=== PATIENT | female | born 1965 | race Two or more races ===

== ENCOUNTER 2017-05-19 16:53 | Emergency (ER) | payer OTHER ==
[2017-05-19 17:10] VITALS: BP 135/87; PULSE 77; TEMP 98.4; BMI 24.2
--- NOTE | 2017-05-19 17:10 | PDOC ---
Rapid Medical Evaluation Chief Complaint: Eye Problem Time Seen by Provider: 05/19/17 17:07 Medical Evaluation: Allergies Allergy/AdvReac Type Severity Reaction Status Date / Time Penicillins AdvReac Verified 05/19/17 17:06 sulfamethoxazole AdvReac Verified 05/19/17 17:06 [From Bactrim] trimethoprim [From Bactrim] AdvReac Verified 05/19/17 17:06 05/19/17 17:07 I have performed a brief in-person evaluation of this patient. The patient presents with a chief complaint of: FB sensation w/ photophobia and tearing to R eye. States something fell into her eye at home while looking up in a closet 1/2 an hr ago. H/o renal transplant, HTN Pertinent physical exam findings:mild injection to R conjunctiva I have ordered the following:nothing The patient will proceed to the ED for further evaluation.
[2017-05-19] MEDS ORDERED: FLUORESCEIN NA 1 EA STRIP ONE (18:04)
[2017-05-19] MEDS ORDERED: TETRACAINE 0.5% OPHTH SOLN 2 ML BOTTLE ONE (18:04)
--- NOTE | 2017-05-19 18:08 | PDOC ---
History of Present Illness - General History Source: Patient Exam Limitations: No Limitations - History of Present Illness Initial Comments: 05/19/17 18:14 The patient is a 51 year old female with a significant PMH of kidney failure (s/ p transplant) who presents to the emergency department with bilateral eye redness s/p foreign particles in the eye at about 4PM today. The patient reports putting away decorations on the top shelf of a closet when some dust particles slid down into her eyes She reports washing out her eyes shortly after but denies rubbing them after washing them out. The patient reports having an episode of bilateral eye inflammation last week which she received Ciprofloxacin for. She reports using the Ciprofloxacin to some relief before this episode. Allergies: Penicillins, Sulfamethoxazole, Trimethoprim Social history: No reported cigarette, alcohol, or drug use. PCP: Dr. Sumner Review of Systems GENERAL/CONSTITUTIONAL: No fever or chills. No weakness. HEAD, EYES, EARS, NOSE AND THROAT: (+) Dust particles in eyes. (+) Bilateral eye redness. No ear pain or discharge. No sore throat. CARDIOVASCULAR: No chest pain or shortness of breath. RESPIRATORY: No cough, wheezing, or hemoptysis. GASTROINTESTINAL: No nausea, vomiting, diarrhea or constipation. GENITOURINARY: No dysuria, frequency, or change in urination. MUSCULOSKELETAL: No joint or muscle swelling or pain. No neck or back pain. SKIN: No rash NEUROLOGIC: No headache, vertigo, loss of consciousness, or change in strength/ sensation. ENDOCRINE: No increased thirst. No abnormal weight change. HEMATOLOGIC/LYMPHATIC: No anemia, easy bleeding, or history of blood clots. ALLERGIC/IMMUNOLOGIC: No hives or skin allergy. Physical Exam: GENERAL: Awake, alert, and fully oriented, in no acute distress HEAD: No signs of trauma EYES: (+) Bilateral eye erythema. PERRLA, EOMI, sclera anicteric, conjunctiva clear ENT: Auricles normal inspection, hearing grossly normal, nares patent, oropharynx clear without exudates. Moist mucosa NECK: Normal ROM, supple, no lymphadenopathy, JVD, or masses LUNGS: Breath sounds equal, clear to auscultation bilaterally. No wheezes, and no crackles HEART: Regular rate and rhythm, normal S1 and S2, no murmurs, rubs or gallops ABDOMEN: Soft, nontender, normoactive bowel sounds. No guarding, no rebound. No masses EXTREMITIES: Normal range of motion, no edema. No clubbing or cyanosis. No cords, erythema, or tenderness NEUROLOGICAL: Cranial nerves II through XII grossly intact. Normal speech, normal gait SKIN: Warm, Dry, normal turgor, no rashes or lesions noted. <Rui Chand - Last Filed: 05/19/17 18:14> <Louann Cao - Last Filed: 05/19/17 18:37> - General Chief Complaint: Eye Problem Stated Complaint: EYE PROBLEM Time Seen by Provider: 05/19/17 17:07 Past History <Rui Chand - Last Filed: 05/19/17 18:14> - Past Medical History Anemia: No Asthma: No Cancer: No Cardiac Disorders: Yes (HEART MURMUR) CVA: No COPD: No CHF: No Dementia: No Diabetes: No Dialysis: No (hx of) GI Disorders: No Disorders: No HTN: Yes Hypercholesterolemia: No Liver Disease: No Seizures: No Thyroid Disease: No - Surgical History Abdominal Surgery: Yes (lt ovary removed,) - Suicide/Smoking/Psychosocial Hx Smoking History: Never smoked Have you smoked in the past 12 months: No Information on smoking cessation initiated: No Hx Alcohol Use: No Drug/Substance Use Hx: No Substance Use Type: None <Louann Cao - Last Filed: 05/19/17 18:37> - Past Medical History Allergies/Adverse Reactions: Allergies Allergy/AdvReac Type Severity Reaction Status Date / Time Penicillins AdvReac Verified 05/19/17 17:06 sulfamethoxazole AdvReac Verified 05/19/17 17:06 [From Bactrim] trimethoprim [From Bactrim] AdvReac Verified 05/19/17 17:06 Home Medications: Ambulatory Orders Ciprofloxacin 0.3% Eye Drops [Ciloxan 0.3% Eye Drops --] 2 drop OU Q4HWA #1 bottle 05/19/17 *Physical Exam - Vital Signs Last Vital Signs Temp Pulse Resp BP Pulse Ox 98.4 F 77 18 135/87 100 05/19/17 17:07 05/19/17 17:07 05/19/17 17:07 05/19/17 17:07 05/19/17 17:07 <Rui Chand - Last Filed: 05/19/17 18:14> - Vital Signs Last Vital Signs Temp Pulse Resp BP Pulse Ox 98.4 F 77 18 135/87 100 05/19/17 17:07 05/19/17 17:07 05/19/17 17:07 05/19/17 17:07 05/19/17 17:07 <Louann Cao - Last Filed: 05/19/17 18:37> Medical Decision Making - Medical Decision Making 05/19/17 18:23 A portion of this note was documented by the scribe services under my direction. I reviewed the details of the note within reason, and agree with the documentation with the following case summary and management plan written by me. A/P: Patient with bilateral conjunctivitis will DC patient on Cipro based eyedrops, follow-up with ophthalmology. 05/19/17 18:37 <Louann Cao - Last Filed: 05/19/17 18:37> *DC/Admit/Observation/Transfer - Attestations Scribe Attestion: 05/19/17 18:14 Documentation prepared by Rui Chand, acting as medical esthetician for Louann Cao NP. <Rui Chand - Last Filed: 05/19/17 18:14> - Discharge Dispostion Admit: No <Louann Cao - Last Filed: 05/19/17 18:37> Diagnosis at time of Disposition: Conjunctivitis Qualifiers: Conjunctivitis type: acute Acute conjunctivitis type: unspecified Laterality: bilateral Qualified Code(s): H10.33 - Unspecified acute conjunctivitis, bilateral - Discharge Dispostion Disposition: HOME Condition at time of disposition: Good - Prescriptions Prescriptions: Ciprofloxacin 0.3% Eye Drops [Ciloxan 0.3% Eye Drops --] 2 drop OU Q4HWA #1 bottle - Referrals Referrals: Glenroy Sumner MD [Primary Care Provider] - - Patient Instructions Printed Discharge Instructions: Conjunctivitis Additional Instructions: * Refrain from touching or scratching eye * Please wash hands frequently * Please followup with his primary care doctor in 2 days if symptoms persist * Medication as prescribed * Warm compresses to eye * If increased redness, swelling, pain to the eye please follow up with primary care doctor immediately or return to emergency room - Post Discharge Activity Forms/Work/School Notes: Back to Work
== END 2017-05-19 18:38 | disposition home or self-care (01) ==
LOC: JERFT 16:53
DX: H10.33 Unspecified acute conjunctivitis, bilateral (principal); I10 Essential (primary) hypertension; Z94.0 Kidney transplant status
CPT/HCPCS: 99281-25

== ENCOUNTER 2018-11-03 13:35 | Emergency (ER) | payer OTHER | END 2018-11-03 18:56 | disposition home or self-care (01) | LOC: JER 13:35 ==

== ENCOUNTER 2019-03-26 05:13 | Emergency (ER) | payer OTHER ==
--- NOTE | 2019-03-26 05:44 | PDOC ---
Attending Attestation - Resident Resident Name: GlenroyYamilex - ED Attending Attestation I have performed the following: I have examined & evaluated the patient, The case was reviewed & discussed with the resident, I agree w/resident's findings & plan - HPI HPI: 03/26/19 06:56 Pt comes with vomiting - Physicial Exam PE: 03/26/19 06:57 Agree with resident exam - Medical Decision Making 03/26/19 06:58 WBC normal 03/26/19 06:58 Lipase normal 03/26/19 07:11 Food poisoning; signed out to the day team Heart Score/ECG Review - ECG Intrepretation Rhythm: Regular Rhythm - Clarissa Clarissa: Normal - P and MI Delta Wave(s) Present: No WPW: No - QRS Poor R Wave Progression: No Q Wave Present: No - ST and T Early Repolarization: No Non Specific ST-T Wave changes: No Flattened T Waves: No Prolonged Q-T Interval: No
[2019-03-26 06:04] VITALS: BP 143/86; PULSE 107; TEMP 98.1; BMI 25.0
--- NOTE | 2019-03-26 06:04 | PDOC ---
History of Present Illness - General Chief Complaint: Vomiting/Diarrhea Stated Complaint: VOMITING Time Seen by Provider: 03/26/19 05:44 History Source: Patient - History of Present Illness Initial Comments: 03/26/19 06:03 53 yo F PMH CKD s/p kidney transplant (2012), HTN, VSD presented to the ED with continuous vomiting/ diarrhea. Pt states the symptoms began approx 8pm yesterday. she states that since then she has had constant diarrhea, unable to control. She also has been vomiting. she states over the past hour she has vomited 5 times. she states that she ate food from a restaurant yesterday which is outside of her norm. Her other family members who also ate the same food are not experiencing symptoms. she denies hematemesis or hematochezia. she states that shortly prior to diarrhea/ nausea her stomach began to hurt and has been constant since then, she rates the pain 5/10 worse in LLQ, RLQ. She endorses dizziness, weakness. denies fevers 03/26/19 06:04 03/26/19 06:08 Past History - Travel Traveled outside of the country in the last 30 days: No If so, where?: 2 months ago [place] - Past Medical History Allergies/Adverse Reactions: Allergies Allergy/AdvReac Type Severity Reaction Status Date / Time Penicillins AdvReac Verified 03/26/19 05:40 sulfamethoxazole AdvReac Verified 03/26/19 05:40 [From Bactrim] trimethoprim [From Bactrim] AdvReac Verified 03/26/19 05:40 Home Medications: Ambulatory Orders Carvedilol [Coreg -] 12.5 mg PO BID 03/26/19 Cholecalciferol (Vitamin D3) [Vitamin D] 2,000 unit PO DAILY 03/26/19 Cinacalcet HCl [Sensipar -] 30 mg PO DAILY 03/26/19 Magnesium Oxide [Mag-Ox -] 400 mg PO DAILY 03/26/19 Mycophenolate Sodium [Mycophenolic Acid] 360 mg PO HS 03/26/19 Mycophenolate Sodium [Mycophenolic Acid] 720 mg PO AM 03/26/19 Tacrolimus [Prograf] 3 mg PO HS 03/26/19 Tacrolimus [Prograf] 4 mg PO AM 03/26/19 Anemia: No Asthma: No Cancer: No Cardiac Disorders: Yes (HEART MURMUR) CVA: No COPD: No CHF: No Dementia: No Diabetes: No Dialysis: No (hx of) GI Disorders: No Disorders: No HTN: Yes Hypercholesterolemia: No Liver Disease: No Seizures: No Thyroid Disease: No - Surgical History Abdominal Surgery: Yes (lt ovary removed, october2018, kidney transplant 6 yr ago) - Psycho Social/Smoking Cessation Hx Smoking History: Never smoked Have you smoked in the past 12 months: No Hx Alcohol Use: No Drug/Substance Use Hx: No Substance Use Type: None Review of Systems - Review of Systems Able to Perform ROS?: Yes Constitutional: Yes: Chills. No: Fever Respiratory: No: Shortness of Breath Cardiac (ROS): Yes: Chest Pain, Palpitations ABD/GI: Yes: Diarrhea, Indigestion, Abdominal cramping. No: Blood Streaked Bowels, Nausea, Rectal Bleeding, Vomiting, Tarry Stools Musculoskeletal: Yes: Muscle Weakness Neurological: Yes: Weakness, Dizziness *Physical Exam - Vital Signs Last Vital Signs Temp Pulse Resp BP Pulse Ox 98.1 F 107 H 17 143/86 99 03/26/19 05:25 03/26/19 05:25 03/26/19 05:25 03/26/19 05:25 03/26/19 05:25 - Physical Exam General Appearance: Yes: Nourished, Appropriately Dressed HEENT: positive: Normal Voice, Symmetrical, Pharynx Normal Respiratory/Chest: positive: Lungs Clear, Normal Breath Sounds. negative: Accessory Muscle Use, Crackles, Wheezing Cardiovascular: positive: Regular Rhythm, Regular Rate, S1, S2, Murmur Gastrointestinal/Abdominal: positive: Normal Bowel Sounds, Tender (LLQ, suprapubic ), Soft. negative: Distended, Guarding, Rebound Extremity: negative: Swelling Integumentary: positive: Normal Color, Dry, Warm ED Treatment Course - LABORATORY CBC & Chemistry Diagram: 03/26/19 06:15 03/26/19 06:15 - RADIOLOGY Radiology Studies Ordered: Category Date Time Status CHEST X-RAY PORTABLE* [RAD] Stat Radiology 03/26/19 05:51 Ordered Medical Decision Making - Medical Decision Making 03/26/19 06:12 53yo F presenting with nausea, vomiting, diarrhea -CBC. CMP, Mg Phos -EKG -lipase -zofran -CXR 03/26/19 06:19 -ekg reviewed, in sinus. 03/26/19 06:26 -cbc reviewed - 03/26/19 06:49 lipase 92, unlikely pancreatitis 03/26/19 07:00 trop neg Discharge - Discharge Information Problems reviewed: Yes Clinical Impression/Diagnosis: Nausea & vomiting Disposition: HOME - Follow up/Referral Referrals: Glenroy Sumner MD [Primary Care Provider] - - Patient Discharge Instructions Patient Printed Discharge Instructions: DI for Viral Gastroenteritis -- Adult Additional Instructions: You were seen with nausea, vomiting, and diarrhea. This is likely to have been a viral illness. Your labs were unconcerning, and your symptoms improved with medication. Please drink plenty of fluids. Follow up with your primary care doctor within one week. Return to the ED if you develop worsening symptoms. - Post Discharge Activity
[2019-03-26] MEDS ORDERED: ONDANSETRON 4 MG/2 ML VIAL IVPUSH ONE ×2 (06:17→08:47)
[2019-03-26] MEDS ORDERED: ONDANSETRON 4 MG/2 ML VIAL ONE ×2 (06:22→09:33)
[2019-03-26 06:24] LABS: BASO % 1.1 % (0-2.0); EOS % 0.6 % (0-4.5); HEMATOCRIT 46.2 % (32.4-45.2); HEMOGLOBIN 15.1 GM/dL (10.7-15.3); LYMPH % 5.8 % (8-40); MCH 28.3 pg (25.7-33.7); MCHC 32.6 g/dl (32.0-36.0); MEAN CELL VOLUME 86.8 fl (80-96); MEAN PLT VOLUME 10.3 fl (7.5-11.1); MONO % 8.3 % (3.8-10.2); NEUT % 84.2 % (42.8-82.8); PLATELET COUNT 157 K/MM3 (134-434); RBC 5.32 M/mm3 (3.60-5.2); RDW 14.4 % (11.6-15.6); WHITE BLOOD COUNT 4.3 K/mm3 (4.0-10.0)
[2019-03-26] MEDS ORDERED: SODIUM CHLORIDE 500 ML IV STA (06:40)
[2019-03-26 07:21] LABS: ALBUMIN 5.1 g/dl (3.4-5.0); BILIRUBIN,TOTAL 0.9 mg/dL (0.2-1); BLOOD UREA NITROGEN 22.5 mg/dL (7-18); CALCIUM 8.6 mg/dL (8.5-10.1); CREATININE 1.2 mg/dL (0.55-1.3); MAGNESIUM 1.8 mg/dL (1.8-2.4); PHOSPHOROUS 3.6 mg/dL (2.5-4.9); POTASSIUM 3.7 mmol/L (3.5-5.1); TOT PROT 8.3 g/dl (6.4-8.2)
[2019-03-26] MEDS ORDERED: LACTATED RINGERS SOLUTION 1000 ML INFUS.BAG IV ONE (07:30)
--- NOTE | 2019-03-26 07:33 | PDOC ---
*Physical Exam - Vital Signs Last Vital Signs Temp Pulse Resp BP Pulse Ox 98.1 F 107 H 17 143/86 99 03/26/19 05:25 03/26/19 05:25 03/26/19 05:25 03/26/19 05:25 03/26/19 05:25 ED Treatment Course - LABORATORY CBC & Chemistry Diagram: 03/26/19 06:15 03/26/19 06:15 - ADDITIONAL ORDERS Additional order review: Laboratory Results 03/26/19 03/26/19 03/26/19 06:15 06:15 06:14 Sodium 139 Potassium 3.7 Chloride 104 Carbon Dioxide 28 Anion Gap 7 L BUN 22.5 H Creatinine 1.2 Est GFR (CKD-EPI)AfAm 58.92 Est GFR (CKD-EPI)NonAf 50.84 Random Glucose 138 H Calcium 8.6 Phosphorus 3.6 Magnesium 1.8 Total Bilirubin 0.9 AST 27 ALT 28 Alkaline Phosphatase 90 Troponin I < 0.02 Total Protein 8.3 H Albumin 5.1 H Lipase 92 03/26/19 06:15 RBC 5.32 H MCV 86.8 MCHC 32.6 RDW 14.4 MPV 10.3 Neutrophils % 84.2 H D Lymphocytes % 5.8 L D Monocytes % 8.3 Eosinophils % 0.6 D Basophils % 1.1 - Medications Given in the ED: ED Medications Discontinued Medications Generic Name Dose Route Start Last Admin Trade Name Aryanq PRN Reason Stop Dose Admin Ondansetron HCl 4 mg 03/26/19 06:17 03/26/19 06:25 Zofran Injection IVPUSH 03/26/19 06:18 4 mg ONCE ONE Administration Medical Decision Making - Medical Decision Making 03/26/19 07:[address] Tim, will f/u CMP, UA, dispo per symptoms (N/V/D). 03/26/19 07:28 Electrolytes wnl, will give another 500cc. Patient feeling slightly less nauseous, no longer having diarrhea. 03/26/19 08:17 Patient continuing to feel better. Will rehydrate orally, monitor for increasing nausea. Discharge - Discharge Information Problems reviewed: Yes Clinical Impression/Diagnosis: Nausea & vomiting Disposition: HOME - Follow up/Referral Referrals: Glenroy Sumner MD [Primary Care Provider] - - Patient Discharge Instructions Patient Printed Discharge Instructions: DI for Viral Gastroenteritis -- Adult Additional Instructions: You were seen with nausea, vomiting, and diarrhea. This is likely to have been a viral illness. Your labs were unconcerning, and your symptoms improved with medication. Please drink plenty of fluids. Follow up with your primary care doctor within one week. Return to the ED if you develop worsening symptoms. - Post Discharge Activity
[2019-03-26] MEDS ORDERED: FAMOTIDINE 20 MG/50 ML IVPB 20 MG/50 ML MG IVPB ONE (08:53)
[2019-03-26] MEDS ORDERED: ACETAMINOPHEN 1000 MG/100 ML VIAL (NON FORMULARY) IVPB ONE (08:53)
[2019-03-26] MEDS ORDERED: SODIUM CHLORIDE 0.9% 500 ML INFUS.BAG IV ONE (09:32)
[2019-03-26] MEDS ORDERED: ACETAMINOPHEN INJECTION 0 ML IVPB ONE (09:33)
[2019-03-26] MEDS ORDERED: FAMOTIDINE 20 MG/50 ML IVPB 0 MG/0 ML MG IVPB ONE (09:35)
--- NOTE | 2019-03-26 11:28 | EKG ---
Test Reason : Blood Pressure : / mmHG Vent. Rate : 097 BPM Atrial Rate : 097 BPM P-R Int : 128 ms QRS Dur : 090 ms QT Int : 334 ms P-R-T Axes : 066 047 053 degrees QTc Int : 424 ms NORMAL SINUS RHYTHM POSSIBLE LEFT ATRIAL ENLARGEMENT LEFT VENTRICULAR HYPERTROPHY ABNORMAL ECG NO PREVIOUS ECGS AVAILABLE Confirmed by KSENIA NAGY MD ([id number]) on 03/26/2019 11:28:23 AM Referred By: Confirmed By:KSENIA NAGY MD
[2019-03-26 12:58] LABS: ANISOCYTOSIS 1+; MACROCYTOSIS 0; OVALOCYTE 1+; PLATELET ESTIMATE NORMAL; TEAR DROP CELLS 1+
== END 2019-03-26 10:02 | disposition home or self-care (01) ==
LOC: JER 05:13
PROC: 3E0337Z Introduction of Electrolytic and Water Balance Substance into Peripheral Vein, Percutaneous Approach (ICD-10-PCS; principal; 2019-03-26)
PROC: 3E033GC Introduction of Other Therapeutic Substance into Peripheral Vein, Percutaneous Approach (ICD-10-PCS; 2019-03-26)
DX: A08.4 Viral intestinal infection, unspecified (principal); B97.89 Other viral agents as the cause of diseases classified elsewhere; I10 Essential (primary) hypertension; Q21.0 Ventricular septal defect; Z94.0 Kidney transplant status; Z88.2 Allergy status to sulfonamides; Z88.0 Allergy status to penicillin
CPT/HCPCS: 36415; 71045-TC-FY; 80053; 83690; 83735; 84100; 84484; 85025; 93005; 93010; 96361; 96374; 99282-25

== ENCOUNTER 2023-03-15 10:47 | Emergency (ER) | payer OTHER ==
[2023-03-15 10:52] VITALS: BMI 20.9
[2023-03-15] MEDS ORDERED: SODIUM CHLORIDE 1,000 ML IV STA (12:03)
[2023-03-15 13:14] LABS: BASO % 0.2 % (0-2.0); EOS % 0.5 % (0-4.5); HEMATOCRIT 41.3 % (32.4-45.2); LYMPH % 5.7 % (8-40); MCH 28.8 pg (25.7-33.7); MCHC 33.8 g/dl (32.0-36.0); MEAN PLT VOLUME 11.1 fl (7.5-11.1); MONO % 10.2 % (3.8-10.2); NEUT % 83.4 % (42.8-82.8); PLATELET COUNT 147 10^3/uL (134-434); RBC 4.86 M/mm3 (3.60-5.2); RDW 14.7 % (11.6-15.6); WHITE BLOOD COUNT 9.4 K/mm3 (4.0-10.0)
[2023-03-15 13:28] LABS: EPI CELLS >36 /uL (0-25.1); HYALINE CASTS 16 /uL (0-3.1); PH,URINE 5.5 (5.0-8.0); URINE APPEARANCE CLOUDY; URINE BILIRUBIN 2+ (NEGATIVE); URINE COLOR ORANGE; URINE GLUCOSE (UA) NEGATIVE (NEGATIVE); URINE KETONE TRACE (NEGATIVE); URINE LEUK ESTERASE 1+ (NEGATIVE); URINE NITRITE POSITIVE (NEGATIVE); URINE PROTEIN 3+ (NEGATIVE); URINE WBC 415 /uL (0-25.8)
[2023-03-15 13:38] LABS: CHLORIDE 101 mmol/L (98-107)
[2023-03-15 13:39] LABS: BLOOD UREA NITROGEN 15.3 mg/dL (7-18); CALCIUM 8.4 mg/dL (8.5-10.1); CO2 25 mmol/L (21-32); GLUCOSE,RANDOM 103 mg/dL (74-106)
[2023-03-15 13:41] LABS: ALBUMIN 3.2 g/dl (3.4-5.0)
[2023-03-15 13:43] LABS: CREATININE 1.3 mg/dL (0.55-1.3)
[2023-03-15 13:45] LABS: TOT PROT 9.1 g/dl (6.4-8.2)
[2023-03-15 13:46] LABS: ALK PHOS 64 U/L (45-117)
[2023-03-15 14:00] LABS: ANION GAP -6 mmol/L (4-13); POTASSIUM > 10.0 mmol/L (3.5-5.1); SODIUM 120 mmol/L (136-145)
[2023-03-15 14:11] LABS: URINE BACTERIA 1018 /uL (0-1359); URINE RBC 28.2 /uL (0-23.9)
[2023-03-15] MEDS ORDERED: CEPHALEXIN MONOHYDRATE 500 MG CAPSULE (UD) PO ONE (14:11)
[2023-03-15] MEDS ORDERED: CEPHALEXIN MONOHYDRATE 500 MG CAPSULE (UD) ONE (14:21)
[2023-03-15 15:24] LABS: POTASSIUM 4.9 mmol/L (3.5-5.1)
[2023-03-15 15:25] LABS: CALCIUM 8.1 mg/dL (8.5-10.1)
[2023-03-15 15:26] LABS: BLOOD UREA NITROGEN 14.3 mg/dL (7-18)
[2023-03-15 15:29] LABS: CREATININE 1.1 mg/dL (0.55-1.3)
[2023-03-15 16:37] VITALS: BP 131/79; PULSE 89; RESP 16; TEMP 99
== END 2023-03-15 16:38 | disposition home or self-care (01) ==
LOC: JER 10:47
PROC: 3E0337Z Introduction of Electrolytic and Water Balance Substance into Peripheral Vein, Percutaneous Approach (ICD-10-PCS; principal; 2023-03-15)
DX: R50.9 Fever, unspecified (principal); R19.7 Diarrhea, unspecified; M79.10 Myalgia, unspecified site; J10.1 Influenza due to other identified influenza virus with other respiratory manifestations; N30.00 Acute cystitis without hematuria; Z20.822 Contact with and (suspected) exposure to COVID-19
CPT/HCPCS: 0241U-QW; 36415; 80048; 80053; 80197; 81003; 85025; 87040; 87086; 99284-25